=== PATIENT | male | born 1975 | race Caucasian/White ===

== ENCOUNTER 2016-06-10 17:12 | Emergency (ER) | payer SELFPAY ==
[~2016-06-10] VITALS: Ht 180.3 cm; Wt 116.0 kg
[2016-06-10 17:36] VITALS: BP 167/102
== END 2016-06-10 23:35 | disposition left against medical advice (07) ==
LOC: ER 20:37
DX: H57.8 Other specified disorders of eye and adnexa (principal); Z90.49 Acquired absence of other specified parts of digestive tract